=== PATIENT | male | born 1965 | race Caucasian/White ===

== ENCOUNTER 2024-05-21 15:31 | Inpatient (IN) | payer OTHER, SELFPAY ==
[2024-05-21] VITALS (22 sets, daily range): BP systolic 122–164; BP diastolic 77–100; PULSE 80–85; BMI 31.5
--- NOTE | 2024-05-21 08:39 | ED.GENMED ---
History of Present Illness
General
Chief Complaint: Weakness
Source: patient
Exam Limitations: none
Time Seen by Provider: 05/21/24 08:18
Nursing documentation reviewed up to this point in time: agreed with
History of Present Illness
History of Present Illness:
58-year-old male with past medical history melanoma treatment at [facility]. He claims that he had an infusion 1 month ago on April 17 and end up having a reaction and potentially Guillain-Finley�. Has continued right-sided facial droop
and some generalized weakness. His weakness has worsened over the past few days denies specific chest pain. He has felt some constipation and bloating but no sharp abdominal pain no chest pain no specific shortness of breath. No fevers.
Past History
Past History
ED Past Medical History: None
ED Past Surgical History: None
Social History
Tobacco: Non-smoker
Alcohol: None
Review of Systems
Review of Systems
Allergies reviewed?: Yes
All Other Systems: ROS reviewed and negative except as documented in HPI and ROS
Phy Exam
Physical Exam
Physical Exam:
GENERAL: Alert , in no apparent distress
EYE: pupils equal and reactive
NECK: Supple, no significant adenopathy.
ENT: o/p clr, mmm.
CARDIAC: Regular rate and rhythm .
LUNGS: Clear breath sounds bilaterally, no acute respiratory distress, no wheezes/rales/rhonchi
ABDOMEN: Soft, without focal tenderness, no r/g, no cvat
NEUROLOGICAL: Alert and oriented, right-sided facial droop otherwise no cranial nerve findings. 5 out of 5 upper and lower extremity strength normal sensation when palpating bilaterally. Normal finger-nose and sffs-[id number].
SKIN: Warm and dry, skin intact.
MUSCULOSKELETAL: No edema, well perfused.
PSYCH: Normal and appropriate interaction.
Course
Orders/Labs/Results
Orders:
Orders
05/21/24 08:31
Electrocardiogram (*1) Stat
Reason for Study: Abdominal Pain
Cardiac Monitoring- Treatment ONCE
EKG- Treatment ONCE
05/21/24 08:38
Complete Blood Count/With Diff Urgent
Comprehensive Metabolic Panel Urgent
Erythrocyte Sed Rate Urgent
Comment: ADD ON
Ferritin Urgent
Folate Urgent
Comment: ADD ON
TSH Reflex To Free T4 Urgent
Vitamin B12 Urgent
Comment: ADD ON
05/21/24 11:25
Urinalysis Reflex To Culture Urgent
Date Specimen was Collected: 05/21/24
Time Specimen was Collected: 11:16
Urine Microscopic Reflex Cult Urgent
05/21/24 11:44
EMG [Electromyography] Routine
Reason for Exam: GBS or MG after Pembrolizumab
05/21/24 11:45
Add On- LAB Routine
Comments:: Please add to today's labs or draw as routine
Tests Added?: TSH reflex, Ferritin, Folate, Vit. B12, ESR
Obtain Records As Directed
Dates of Information to be Released: all in past 3 months
Type of Information Requested: Entire Record
Obtain Records from: [facility]
05/21/24 11:46
Orthostatic Vital Signs As Directed
Orthostatic VS Frequency: BID
Comment: lying flat x 3 mins then check, seated 3 minutes check, stand 3 mins check
05/21/24 11:47
Speech Therapy Eval & Treat Routine
Treatment: Aphasia
05/21/24 12:15
NEUROLOGY CONSULT Urgent
Consulting Provider: Masood Ricardo
Was physician already notified: Yes
Abnormal Lab Results
05/21/24 05/21/24
08:38 11:25
RBC 4.42 L 10^6/uL
(4.70-6.10)
Hct 38.7 L %
(39.0-52.0)
MCH 32.1 H pg
(27.0-31.0)
Plt Count 105 L 10^3/uL
(130-400)
MPV 10.6 H fL
(7.4-10.4)
Absolute Lymphs (auto) 0.8 L 10^3/uL
(1.2-3.4)
Immature Gran % 0.7 H %
(0-0.5)
Lymphocytes % 14.1 L %
(20.5-51.1)
Monocytes % 10.2 H %
(1.7-9.3)
Sodium 134 L mmol/L
(135-145)
Potassium 3.2 L mmol/L
(3.5-5.1)
Chloride 93 L mmol/L
(98-107)
Carbon Dioxide 31 H mmol/L
(22-30)
Glucose 156 H mg/dl
(70-99)
ALT 76 H U/L
(0-50)
Urine Bilirubin 1+ A
(Negative)
Leukocyte Esterase Rfl Trace A
(Negative)
05/21/24 08:38
05/21/24 08:38
Vital Signs
Initial and Last Documented VS:
Initial Vital Signs
Temp Pulse Resp BP Pulse Ox
98.9 F 91 16 127/82 98
05/21/24 08:09 05/21/24 08:09 05/21/24 08:09 05/21/24 08:09 05/21/24 08:09
Last Documented Vital Signs
Temp Pulse Resp BP Pulse Ox
98.9 F 82 11 122/80 94
05/21/24 08:09 05/21/24 12:15 05/21/24 12:02 05/21/24 12:02 05/21/24 12:15
MDM/Problems Addressed
MDM/Problems Addressed:
58-year-old male presenting to the emergency department today with concerns of generalized weakness fatigue worsening over the past few days. Has had some degree of weakness and fatigue over the past month or so after getting a chemoinfusion and
reversal of the infusion shortly thereafter due to an autoimmune reaction resulting Guillain-Finley� syndrome. Case was discussed with patient's physician at [facility] who confirmed the story. Was previously on high-dose steroids.
Here workup without specific findings on labs of the slightly low potassium level. Case discussed with neurology who saw the patient had some concern for potential myasthenia gravis. Plan to admit for further testing and assessment of this.
*Critical Care Note
Total Time (30-74mins, 75-104mins- exclusive of procedures): Not Applicable
ED Attending Note
-
Portions of this chart may have been created with voice recognition software.� Occasional wrong word or��sound alike� substitutions may have occurred due to the inherent limitations of voice recognition software.
Discharge Plan
Departure
Patient Disposition: Admit
Date of Disposition: 05/21/24
Time of Disposition: 13:55
Admit to: Med/Surg
Admit to doctor: Avelino
Presentation/result/management discussed w/ accepting MD/DO: Hospitalist
Patient with high blood pressure during this ER visit?: No
Condition: Good
Covid-19: Not Applicable
Discharge Problem:
Generalized weakness
Prescriptions:
No Action
amlodipine [Norvasc] 5 mg Tablet
5 mg PO DAILY
pantoprazole [Protonix] 40 mg Tablet,Delayed Release (Dr/Ec)
40 mg PO DAILY
metoprolol succinate [Toprol XL] 25 mg Tablet Extended Release 24 Hr
25 mg PO DAILY
acetaminophen [Tylenol] 325 mg Tablet
650 mg PO BIDPRN PRN (Reason: mild pain)
Ex-Lax (sennosides) 15 mg Tablet,Chewable
15 mg PO DAILYPRN PRN (Reason: constipation)
Thera Tablet
1 tab PO DAILY
GenTeal Tears Mild 0.1-0.3 % Drops
1 drp RIGHT EYE BIDPRN PRN (Reason: dryness)
Referrals:
Karina Landry DO [Family Provider] -
Interventions
Interventions:
*Risk Screen - Suicide Last Done: 05/21/24 08:42
*General Assessment Last Done: 05/21/24 08:42
*Neglect/Abuse Screening Last Done: 05/21/24 08:42
ED- Fall Risk Assessment Last Done: 05/21/24 08:42
*ED COVID-19 Vaccine History Last Done: 05/21/24 08:42
ED- Cardiac Assessment Last Done: 05/21/24 08:42
ED- Neurological Assessment Last Done: 05/21/24 08:42
ED- Pulmonary Assessment Last Done: 05/21/24 08:42
Discharge Date and Time
Print Language: PAKISTANI
[2024-05-21 09:10] LABS: % Basophils 0.4 % (0-2); % Immature Granulocytes 0.7 % (0-0.5); % Lymphocytes 14.1 % (20.5-51.1); % Monocytes 10.2 % (1.7-9.3); % Neutrophils 72.6 % (42.2-75.2); Absolute Eosinophils 0.1 10^3/uL (0-0.7); Absolute Lymphocytes 0.8 10^3/uL (1.2-3.4); Absolute Monocytes 0.6 10^3/uL (0.1-0.6); Absolute Neutrophils 3.9 10^3/uL (1.4-6.5); Hematocrit 38.7 % (39.0-52.0); Hemoglobin 14.2 g/dL (13.0-18.0); Mean Corp Hgb Conc. 36.7 g/dL (33.0-37.0); Mean Corpuscular Hgb 32.1 pg (27.0-31.0); Mean Corpuscular Volume 87.6 fL (80.0-94.0); Mean Platelet Volume 10.6 fL (7.4-10.4); Nucleated Red Blood Cells % 0 % (-); Platelet Count 105 10^3/uL (130-400); Red Blood Cell Count 4.42 10^6/uL (4.70-6.10); Red Cell Dist. Width 12.3 % (11.5-14.5); White Blood Cell Count 5.4 10^3/uL (4.8-10.8)
[2024-05-21 09:12] LABS: ALT (SGPT) 76 U/L (0-50); AST (SGOT) 59 U/L (17-59); Albumin 3.8 g/dl (3.5-5.0); Alkaline Phosphatase 72 U/L (38-126); Blood Urea Nitrogen 17 mg/dl (9-20); Calcium 9.8 mg/dl (8.4-10.2); Carbon Dioxide 31 mmol/L (22-30); Chloride 93 mmol/L (98-107); Glucose 156 mg/dl (70-99); Potassium 3.2 mmol/L (3.5-5.1); Sodium 134 mmol/L (135-145); Total Protein 6.8 g/dl (6.3-8.2); eGFR > 60.00
[2024-05-21 09:37] LABS: TSH Reflex To Free T4 4.08 uIU/ml (0.47-4.68)
--- NOTE | 2024-05-21 11:05 | CON.NEURO ---
Neuro Assessment/Plan
Assessment
IMPRESSIONS
Abrupt change in bilateral lower and bilateral upper extremities with difficulty with swallowing and by examination eyelid weakness. The patient does not have any sensory loss subjectively. He does have sensory loss however distally. It is
possible that the patient's current symptomatology is secondary to exposure than repeated exposure to pembrolizumab. The current symptomatology however matches myasthenia gravis better than GBS. Both neurological disorders can be induced by
pembrolizumab.
Plan
RECOMMENDATIONS:
Check EMG
Start immunoglobulin 0.4 g/per kilogram/per day for 5 days
Will not at this time restart high-dose steroids until information regarding possible GBS is present as this therapy is not assistive in treatment. Likely that this medication was provided originally due to presumed allergic reaction to the
exposure with pembrolizumab
Speech therapy evaluation, consideration for swallowing study repeat after suggestion of recently having undergone same
Most likely will require additional evaluations including physical therapy and Occupational Therapy
Will send acetylcholine receptor antibodies
Attempt to obtain records from [facility]
Watch for alcohol withdrawal
Will continue to follow patient.
Consultation
Order
Date of Consultation: 05/21/24
Requesting Provider: Emergency department provider
Reason for Consult: Guillain-Finley� syndrome
Subjective/Objective
Subjective Data
Date of Service: May 21, 2024
Right-Handed
In January 2024, the patient was diagnosed with melanoma of chest at [facility]. The patient then received an initial infusion of Pembrolizumab from which he developed a rash, with steroids started.
Received second dose of Pembrolizumab 04/17/2024 with reaction of right-sided facial and generalized weakness. The patient then was hospitalized at [facility] receiving IV steroids and underwent MRI of brain without abnormality and LP without
abnormality. Diagnosis of Guillain-Finley� syndrome was provided to the patient and he was maintained on steroids by mouth until 8 days ago.
The patient presented to this hospital's emergency department with difficulty with walking, eating (dysphagia), constipation, sleeping worsening 4 days ago. No focal weakness. No falling. No known modifying factors. The patient did contact [facility] and was reassured that weakness could persist. The patient did not have prior symptoms before January 2024.
Objective Data
Vital Signs
Temp Pulse Resp BP Pulse Ox
37.2 C 79 22 146/82 96
05/21/24 08:09 05/21/24 10:15 05/21/24 10:15 05/21/24 09:00 05/21/24 08:20
Lab Results
05/21/24 08:38
05/21/24 08:38
Sodium 134 mmol/L (135-145) L 05/21/24 08:38
Potassium 3.2 mmol/L (3.5-5.1) L 05/21/24 08:38
BUN 17 mg/dl (9-20) 05/21/24 08:38
Glucose 156 mg/dl (70-99) H 05/21/24 08:38
Calcium 9.8 mg/dl (8.4-10.2) 05/21/24 08:38
Patient Allergies
No Known Allergies Allergy (Verified 05/21/24 08:16)
Review of Systems
-
History Source: Patient
All other systems: Reviewed and negative
EENT: Swallowing Difficulty
Respiratory: Cough; Negative Trouble Breathing
Cardiac: Negative Chest Pain
Abdomen/GI: Constipated and Pain; Negative Incontinence of Stool
Genitourinary: Negative Incontinence
Musculoskeletal: Back Pain (started 4 days ago); Negative Neck Pain
Neuro: Dizzy (started 4 days ago); Negative Headache
Physical Exam
-
General: No Apparent Distress and Appears Stated Age
Eyes: OU Absent Papilledema, Round OU, [place] Conjunctivae and No Ptosis
HEENT: Anicteric and Moist Mucous Membranes
Neck: Full Range of Motion
Respiratory: No Dyspnea
Cardiac: No JVD
GI: Non-distended
Skin: Unremarkable
Extremities: No Clubbing, No Cyanosis and No Edema
Psych: Intact Judgement/Insight
Extended Neurological Exam
Mood & Affect: Mood Unremarkable and Affect Unremarkable
Attention Span & Concentration: Awake, Alert, Interactive and No Difficulty with 2 Step Request
Memory: Unremarkable
Tremor: Hand Tremor Absent and Head Tremor Absent
Involuntary Movement: None
Speech: Quality Unremarkable and Quantity Unremarkable
Cranial Nerve II: Left Eye: Pupillary Reactivity Unremarkable, Pupillary Size Unremarkable and Visual Rodriguez Intact
Cranial Nerve II: Right Eye: Pupillary Reactivity Unremarkable, Pupillary Size Unremarkable and Visual Rodriguez Intact
Cranial Nerves III, IV, : Extraocular Movement: Extraocular Movement Full in all Directions
Cranial Nerve V: Facial Sensation: Facial Sensation Unremarkable to Cold
Cranial Nerve VII: Facial Symmetry: Normal Facial Symmetry and Reduced (Eyelid opening resistance bilaterally)
Cranial Nerve VIII: Hearing: Unremarkable Hearing to Normal Conversational Volume
Cranial Nerves IX, X: Palate Movement: Palate Elevation Symmetric
Cranial Nerve XI: Shoulder Shrug: Unremarkable
Cranial Nerve XII: Tongue Protusion: Midline
Muscle Strength, Overall: Reduced (Approximately right lower extremity 4+ out of 5, left lower extremity proximally 5- out of 5; distal lower extremity strength full; right upper extremity proximal strength 4+ out of 5, left upper extremity
proximally 5- out of 5), Otherwise Intact (Neck flexors and neck extensors) and Other (Bilateral hand strength 5- out of 5)
Muscle Bulk & Tone: Bulk Unremarkable and Tone Unremarkable
Pronator Drift: No Drift in Upper Extremities
Deep Tendon Reflexes: Absent Throughout
Cold Sensation: Unremarkable
Vibration Sensation: Unremarkable
Touch Sensation: Unremarkable
Coordination: [id number] Testing Unremarkable
Babinski Sign: Absent Bilaterally
Gait & Station: Romberg Test Negative
Data Reviewed
-
Labs: Ordered and Report Reviewed
Reviewed with: Physician, Patient and Family
Old Records: Summarized
Medications
-
Home Medications
�Medication �Instructions �Recorded
acetaminophen 325 mg tablet 650 mg PO BIDPRN PRN mild pain 05/21/24
(Tylenol)
amlodipine 5 mg tablet (Norvasc) 5 mg PO DAILY 05/21/24
dextran 70-hypromellose 0.1 %-0.3 1 drp RIGHT EYE BIDPRN PRN dryness 05/21/24
% eye drops (GenTeal Tears Mild)
metoprolol succinate 25 mg 25 mg PO DAILY 05/21/24
tablet,extended release 24 hr
(Toprol XL)
pantoprazole 40 mg tablet,delayed 40 mg PO DAILY 05/21/24
release (Protonix)
sennosides 15 mg chewable tablet 15 mg PO DAILYPRN PRN constipation 05/21/24
(Ex-Lax (sennosides))
therapeutic multivitamin 1 tab PO DAILY 05/21/24
Past History
Past History
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
ED Past Surgical History: Orthopedic (right knee 2019) and Other (MOHS surgery, herniorrhaphy in age 18's)
Social History
Tobacco: Non-smoker
Alcohol: Daily (2x/day)
Drug: None
Personal:
Living: with family
Employment: Employed
Family History
Family History: Other (Reviewed and noncontributory)
[2024-05-21 12:12] LABS: Urine Albumin Trace (Neg - Trace); Urine Bilirubin 1+ (Negative); Urine Character Clear (Clear); Urine Color Yellow; Urine Glucose Negative (Negative); Urine Ketone Negative (Negative); Urine Leukocyte Trace (Negative); Urine Nitrite Negative (Negative); Urine Occult Blood Negative (Negative); Urine Urobilinogen 1+ (Neg - 1+)
[2024-05-21 12:58] LABS: Urine Red Blood Cell 0-2 /HPF (0-2)
[2024-05-21 14:08] LABS: Erythrocyte Sed Rate 70 mm/hour (0-20)
--- NOTE | 2024-05-21 14:16 | HPS.HSE ---
Family Physician
-
Family Physician: Karina Landry
Chief Complaint
-
Increased profound weakness along with increased gait abnormality
History of Present Illness
58-year-old male with history of melanoma following at [facility]. He reports receiving 1 infusion of immunotherapy pembrolizumab early in March for developing a rash to his legs and back similar to his psoriasis along with tingling to
hands and feet. He was placed on a short course of steroids. He then was given a second dose of the same immunotherapy on April 17, 2024 and having a reaction with right sided facial droop, right eyelid droop, slurred speech, perioral tingling,
profound weakness. On April 23 he was taken back to the hospital due to symptoms given IVIG x 5 days 04/23 - 04/28/2024 along with a 16-day course of steroids from 04/28 - 05/14/2024 for concerns of Alicia Finley� reaction. He is reporting continued
right-sided facial droop and some generalized weakness has worsened over the past few days along with some constipation and abdominal bloating. He denies headache, fever, chills, chest pain, palpitations, shortness breath, cough, nausea, vomiting,
diarrhea.
Medical History
Past Medical History
Past Medical History: Reports Other
Additional Past Medical History:
Melanoma being treated at [facility] did receive first dose immunotherapy early March followed by rash to legs and back with tingling to hands and feet
2nd dose immunotherapy pembrolizumab April 17, 2023 resulting in right facial droop, slurred speech, profound weakness, gait imbalance
With post reaction thought to be Alicia Finley� versus possible myasthenia gravis
HTN�benign
Past Surgical History: Reports Other
Additional Past Surgical History:
Hernia repair
Social History
Tobacco: Non-smoker
Alcohol: Occasional
Drug: None
Personal:
Living: With Family ()
Family History
Family History: Other (Mother lung cancer was a smoker, father age 77 pancreatic cancer, 1 sister age 59 kidney failure, 2 sisters 1 history of CVA 3 brothers living 1 history of CVA)
Allergies / Home Medications
Allergies reflects when Allergies were last updated in [facility].
Home Medications with original date entered in [facility]
Allergy/Medication List:
Allergies
Allergy/AdvReac Type Severity Reaction Status Date / Time
No Known Allergies Allergy Verified 05/21/24 08:16
Home Medications
acetaminophen 325 mg tablet (Tylenol) 650 mg PO BIDPRN PRN mild pain 05/21/24
amlodipine 5 mg tablet (Norvasc) 5 mg PO DAILY 05/21/24
dextran 70-hypromellose 0.1 %-0.3 % eye drops (GenTeal Tears Mild) 1 drp RIGHT EYE BIDPRN PRN dryness 05/21/24
metoprolol succinate 25 mg tablet,extended release 24 hr (Toprol XL) 25 mg PO DAILY 05/21/24
pantoprazole 40 mg tablet,delayed release (Protonix) 40 mg PO DAILY 05/21/24
sennosides 15 mg chewable tablet (Ex-Lax (sennosides)) 15 mg PO DAILYPRN PRN constipation 05/21/24
therapeutic multivitamin 1 tab PO DAILY 05/21/24
Review of Systems
-
History Source: Patient and Family ( at bedside)
A 12 point ROS was completed and negative except as noted: Yes
Constitutional: Reports Fatigue (Generalized)
EENT: Reports Other (Chronic right upper lid ptosis, chronic slight slurred speech); Denies Sore Throat or Mouth Swelling
Respiratory: Denies Cough or Trouble Breathing
Cardiac: Denies Chest Pain, Diaphoresis, Palpitations or Syncope
Abdomen/GI: Denies Abdominal Pain, Nausea, Vomiting or Diarrhea
: Denies Dysuria, Frequency, Flank Pain, Incontinence, Difficulty Voiding or Urgency
Musculoskeletal: Reports Other (Generalized weakness arms, legs); Denies Joint Pain, Muscle Pain or Muscle Stiffness
Skin: Reports Rash (Psoriatic rash bilateral anterior lower shins); Denies Itching
Neurological: Reports Dizzy (With standing), Weakness (Generalized) and Numbness (Reported chronic tingling to perioral area, fingertips and feet post immunotherapy); Denies Headache
Endocrine: Reports No Symptoms
Hematologic/Lymphatic: Reports No Symptoms
Psych: Reports Calm
Physical Exam
Vital Signs
Vital Signs
Temp Pulse Resp BP Pulse Ox
98.9 F 82 11 122/80 94
05/21/24 08:09 05/21/24 12:15 05/21/24 12:02 05/21/24 12:02 05/21/24 12:15
Physical Exam
General: Comfortable and Conversant; No Pain, Fever or Chills
HEENT: NormoCephalic, Anicteric, PERRLA, [place] Conjunctivae and Other (Chronic right upper lid ptosis, chronic slight slurred speech able to swallow own secretions able to swallow water at bedside without difficulty)
Respiratory: Clear; No Wheezes, Rales or Rhonchi
Cardiac: S1/S2 and Regular Rhythm; No Murmur, Rub, Gallop or Peripheral Edema
Breast: Deferred by me
GI: Soft, Non Tender, Non Distended, Normal Bowel Sounds and No Hepatosplenomegaly
Rectal: Deferred by Provider
Genito-urinary: Deferred by me
Musculoskeletal: No Clubbing, No Cyanosis and No Edema
Skin: Warm, Dry and Rash (Psoriatic rash bilateral anterior lower shins)
Neuro: AO x 3, No Sensory Deficits, Slurred Speech (Slight chronic since immunotherapy infusion) and Other (Chronic right upper lid ptosis, upper arm lower leg weakness 3 out of 5)
Psych: Calm
Laboratory Results
-
05/21/24 08:38
05/21/24 08:38
Laboratory Results
Total Bilirubin 1.0 mg/dl (0.2-1.3) 05/21/24 08:38
AST 59 U/L (17-59) 05/21/24 08:38
ALT 76 U/L (0-50) H 05/21/24 08:38
Alkaline Phosphatase 72 U/L (38-126) 05/21/24 08:38
Impression/Plan
-
Impression/plan:
Admit to telemetry
#Right-sided facial droop with generalized weakness post immunotherapy thought to be Tony Finley� but concerning for Secondary #Myasthenia Gravis for Hx of melanoma
given IVIG x 5 days 04/23 - 04/28/2024 along with a 16-day course of steroids from 04/28 - 05/14/2024 with 2-week course of Protonix due to
reaction of facial droop/generalized weakness/speech difficulty/gait imbalance.
First infusion of immunotherapy early March 2024 with Pembrolizumab-resulting in rash to legs and back
Second infusion of immunotherapy on April 17, 2024 with Pembrolizumab
ESR elevated 70
-Obtain records from [facility]
-Check acetylcholine receptor antibodies
-IVIG 0.4 g/kg/day x 5 days per neurology
-Consult physiatry Dr. Hipolito Dixon for EMG with Repetitive stimulation study tomorrow 05/22/2024
-Consult neurology
-Speech swallow eval-swallow eval completed at bedside recommended minced and moist with thin liquids and supervision
-Consult PT/OT/case management
#Melanoma hx Dx January 2024 with removal left-sided chest
-Follows at [facility]
Acute hypokalemia
K3.2 will give KCl elixir 40 mEq
Follow BMP at 11 PM
#Thrombocytopenia -unclear
plt 105
#HTN�benign
Continue Norvasc 5 mg daily, Toprol-XL 25 mg daily
#Psoriasis
Current plaques to right lower anterior legs
#Constipation
Continue as needed senna
DVT prophylaxis
Subcu Lovenox
Full code
[2024-05-21 14:32] LABS: Folate 18.2 ng/ml (2.76-20); Vitamin B12 922 pg/ml (239-931)
--- NOTE | 2024-05-21 15:45 | PTOTSP ---
Dysphagia Evaluation
Patient presents with signs concerning for at least moderate oral dysphagia and possible pharyngeal dysphagia. He is at an elevated risk for dysphagia/aspiration given concern for myasthenia gravis. Discontinue oral diet if worsened signs of
dysphagia and/or aspiration noted.
Recommend:
1. IDDSI Level 5 Minced and Moist, IDDSI Level 0 Thin Liquids
2. Medications - as best tolerated
3. Strategies: supervision/assistance, upright to 90 degrees, small sips/bites, slow rate, monitor for fatigue as meal progresses and at end of day, cut straw in 1/2 as needed to assist with ability to drink through utensil, remain upright for 30
minutes after PO intake as a reflux precaution
4. Oral care 3x daily
5. Dysphagia therapy at the acute care level. Will f/u to determine if/when video swallow study warranted.
--- NOTE | 2024-05-21 16:12 | CM ---
CM met with pt and spouse in ED
They reside in a 1st floor apartment with 1 small threshold step
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
He is on medical leave
Plans to borrow a WW and shower chair on dc
No hx with VN/SNF
No insecurities
PCP- Karina Landry
Rx- [facility] [id number]
Pt notes weakness and difficulty with ambulation
Will likely benefit from PT/OT orders once medically appropriate
CM will follow for dc planning
Discharge Disposition- home, follow for needs
[2024-05-21] MEDS: KCL ELIXIR 40 MEQ PO (16:30)
[2024-05-21] MEDS: GAMMAGARD 50 IV (17:45)
[2024-05-21] MEDS: LOVENOX 40 MG SC (17:49)
[2024-05-21] MEDS: GAMMAGARD 200 IV (18:34)
--- NOTE | 2024-05-21 20:09 | W.PN.UPDATE ---
Update Note
Progress Note Update
This note serves as an addendum to the H&P by JULISA Valdez, on May 21, 2024.
History of Presenting Illness
58-year-old male with past medical [facility]. He reports receiving 1 infusion of immunotherapy pembrolizumab early in March 2024 for developing a rash to his legs and back similar to his psoriasis along
with tingling to hands and feet. He was placed on a short course of steroids. He then was given a second dose of the same immunotherapy on April 17, 2024 and then had a reaction with right sided facial droop, right eyelid droop, slurred speech,
perioral tingling and profound weakness. On April 23, 2024, patient was taken back to the hospital due to symptoms and given IVIG x 5 days 04/23 - 04/28/2024 along with a 16-day course of steroids from 04/28 - 05/14/2024 for concerns of Alicia Finley�
reaction. He is reporting continued right-sided facial droop and some generalized weakness has worsened over the past few days along with some constipation and abdominal bloating. He reports that his neurological symptoms improved following his
last hospitalization, but did not completely go away, and now is getting worse again.
Physical Exam
General: Not in acute distress
HEENT: Normocephalic
Respiratory: CTAB
Cardiac: S1/S2 and Regular Rhythm
GI: Soft, Non Tender, Non Distended, Normal Bowel Sounds
Musculoskeletal: No Cyanosis and No Edema
Skin: Warm, Dry and Rash (Psoriatic rash bilateral anterior lower shins)
Neuro: AO x 3. Sensation Grossly Intact bilaterally., PERRL. EOMI. Weakness of facial muscles bilaterally and weakness with eyelid resistance. RLE and RUE Strength 4/5; LLE and LUE 5/5
Psych: Calm
Assessment/Plan
#Right-sided facial droop with generalized weakness post immunotherapy thought to be Tony Finley� but concerning for Secondary #Myasthenia Gravis for Hx of melanoma
given IVIG x 5 days 04/23 - 04/28/2024 along with a 16-day course of steroids from 04/28 - 05/14/2024 with 2-week course of Protonix due to
reaction of facial droop/generalized weakness/speech difficulty/gait imbalance.
First infusion of immunotherapy early March 2024 with Pembrolizumab-resulting in rash to legs and back
Second infusion of immunotherapy on April 17, 2024 with Pembrolizumab
-ESR elevated 70
-[facility]
-Check acetylcholine receptor antibodies
-Picture looks more like MG rather than GBS
-No high-dose steroids at this time as per neurology
-IVIG 0.4 g/kg/day x 5 days per neurology
-Consult physiatry Dr. Hipolito Dixon for EMG with Repetitive stimulation study tomorrow 05/22/2024
-Consult neurology, appreciate eval and recommendations
-Speech swallow eval-swallow eval completed at bedside recommended minced and moist with thin liquids and supervision
-Consult PT/OT/case management
#Melanoma hx Dx January 2024 with removal left-sided chest
-[facility]
Acute hypokalemia
K3.2 will give KCl elixir 40 mEq
Follow BMP at 11 PM
#Thrombocytopenia -unclear
plt 105
#HTN�benign
Continue Norvasc 5 mg daily, Toprol-XL 25 mg daily
#Psoriasis
Current plaques to right lower anterior legs
#Constipation
Continue as needed senna
DVT prophylaxis
Subcu Lovenox
Full code
[2024-05-22] VITALS (15 sets, daily range): BP systolic 139–163; BP diastolic 74–94; PULSE 2–101; O2SAT 96; BMI 31.4
[2024-05-22 00:13] LABS: Blood Urea Nitrogen 15 mg/dl (9-20); Calcium 9.3 mg/dl (8.4-10.2); Carbon Dioxide 28 mmol/L (22-30); Chloride 93 mmol/L (98-107); Estimated Creatinine Clearance > 125 ml/min; Glucose 118 mg/dl (70-99); Potassium 3.6 mmol/L (3.5-5.1); Sodium 130 mmol/L (135-145); eGFR > 60.00
[2024-05-22 07:35] LABS: % Basophils 0.3 % (0-2); % Eosinophils 3.4 % (0-6); % Immature Granulocytes 0.8 % (0-0.5); % Lymphocytes 21.3 % (20.5-51.1); % Monocytes 12.9 % (1.7-9.3); % Neutrophils 61.3 % (42.2-75.2); Absolute Eosinophils 0.1 10^3/uL (0-0.7); Absolute Lymphocytes 0.8 10^3/uL (1.2-3.4); Absolute Monocytes 0.5 10^3/uL (0.1-0.6); Absolute Neutrophils 2.2 10^3/uL (1.4-6.5); Hematocrit 36.9 % (39.0-52.0); Hemoglobin 13.7 g/dL (13.0-18.0); Mean Corp Hgb Conc. 37.1 g/dL (33.0-37.0); Mean Corpuscular Hgb 32.3 pg (27.0-31.0); Nucleated Red Blood Cells % 0 % (-); Platelet Count 101 10^3/uL (130-400); Red Blood Cell Count 4.24 10^6/uL (4.70-6.10); Red Cell Dist. Width 12.2 % (11.5-14.5); White Blood Cell Count 3.6 10^3/uL (4.8-10.8)
[2024-05-22] MEDS: NORVASC 5 MG PO (07:36)
[2024-05-22] MEDS: THERAGRAN 1 TABLET PO (07:36)
[2024-05-22] MEDS: TOPROL XL 25 MG PO (07:36)
[2024-05-22 08:47] LABS: ALT (SGPT) 75 U/L (0-50); AST (SGOT) 53 U/L (17-59); Albumin 3.8 g/dl (3.5-5.0); Alkaline Phosphatase 78 U/L (38-126); Blood Urea Nitrogen 13 mg/dl (9-20); Calcium 9.2 mg/dl (8.4-10.2); Carbon Dioxide 28 mmol/L (22-30); Chloride 93 mmol/L (98-107); Estimated Creatinine Clearance > 125 ml/min; Glucose 110 mg/dl (70-99); Potassium 3.6 mmol/L (3.5-5.1); Sodium 132 mmol/L (135-145); Total Bilirubin 1.2 mg/dl (0.2-1.3); Total Protein 7.4 g/dl (6.3-8.2); eGFR > 60.00
--- NOTE | 2024-05-22 11:25 | CM ---
Chart reviewed and patient would benefit from PT/OT evaluation to assist with discharge planning.
Plan; Await PT/OT evaluations.
--- NOTE | 2024-05-22 11:40 | W.PN.HOSP.TC ---
Today's Communication/Plan
-
Continue IVIG
Appreciate neurology
Assessment / Plan
Assessment / Plan
Physical Exam
General: Not in acute distress
HEENT: Normocephalic
Respiratory: CTAB
Cardiac: S1/S2 and Regular Rhythm
GI: Soft, Non Tender, Non Distended, Normal Bowel Sounds
Musculoskeletal: No Cyanosis and No Edema
Skin: Warm, Dry and Rash (Psoriatic rash bilateral anterior lower shins)
Neuro: AO x 3. Sensation Grossly Intact bilaterally. PERRL. EOMI. Weakness of facial muscles bilaterally and weakness with eyelid resistance. RLE and RUE Strength 4/5; LLE and LUE 5/5
Psych: Calm
Assessment/Plan
58-year-old male with past medical history of melanoma following at [facility]. He reported receiving 1 infusion of immunotherapy pembrolizumab early in March 2024 for developing a rash to his legs and back similar to his psoriasis
along with tingling to hands and feet. He was placed on a short course of steroids. He then was given a second dose of the same immunotherapy on April 17, 2024 and then had a reaction with right sided facial droop, right eyelid droop, slurred
speech, perioral tingling and profound weakness. On April 23, 2024, patient was taken back to the hospital due to symptoms and given IVIG x 5 days 04/23 - 04/28/2024 along with a 16-day course of steroids from 04/28 - 05/14/2024 for concerns of Alicia
Finely� reaction. He reported continued right-sided facial droop and some generalized weakness has worsened over the few days prior to presentation, along with some constipation and abdominal bloating. He reports that his neurological symptoms
improved following his last hospitalization, but did not completely go away, and now is getting worse again.
#Right-sided facial droop with generalized weakness post immunotherapy thought to be Edmunds Finley� but concerning for Secondary #Myasthenia Gravis for Hx of melanoma
given IVIG x 5 days 04/23 - 04/28/2024 along with a 16-day course of steroids from 04/28 - 05/14/2024 with 2-week course of Protonix due to
reaction of facial droop/generalized weakness/speech difficulty/gait imbalance.
First infusion of immunotherapy early March 2024 with Pembrolizumab-resulting in rash to legs and back
Second infusion of immunotherapy on April 17, 2024 with Pembrolizumab
-ESR elevated 70
-Attempt to obtain records from [facility]
-Check acetylcholine receptor antibodies
-Picture looks more like MG rather than GBS
-No high-dose steroids at this time as per neurology
-IVIG 0.4 g/kg/day x 5 days per neurology
-Consult physiatry Dr. Hipolito Dixon for EMG with Repetitive stimulation study tomorrow 05/22/2024
-Consult neurology, appreciate eval and recommendations
-Speech swallow eval-swallow eval completed at bedside recommended minced and moist with thin liquids and supervision
-Consult PT/OT/case management
#Melanoma hx Dx January 2024 with removal left-sided chest
-Follows at [facility]
Acute hypokalemia - RESOLVED
K3.2 will give KCl elixir 40 mEq
Monitor BMP
#Thrombocytopenia -unclear
plt 105 on admission, stable
#HTN�benign
Continue Norvasc 5 mg daily, Toprol-XL 25 mg daily
#Psoriasis
Current plaques to right lower anterior legs
#Constipation
Continue as needed senna
DVT prophylaxis
Subcu Lovenox
Full code
Anticipated Discharge: > 48 hours
Subjective/Interval History
-
Date of Service: May 22, 2024
Patient was seen and examined. He reported no new symptoms, he did report a relatively weak urinary stream.
Objective Data
-
Labs:
Laboratory Results
05/21/24 05/22/24
23:42 07:12
WBC 3.6 L
Hgb 13.7
Hct 36.9 L
Plt Count 101 L
Sodium 130 L 132 L
Potassium 3.6 3.6
Chloride 93 L 93 L
Carbon Dioxide 28 28
BUN 15 13
Creatinine 0.6 L 0.6 L
Glucose 118 H 110 H
Calcium 9.3 9.2
Total Bilirubin 1.2
AST 53
ALT 75 H
Alkaline Phosphatase 78
Vital Signs:
Vital Signs
Temp Pulse Resp BP Pulse Ox
97.8 F 76 18 148/86 97
05/22/24 11:16 05/22/24 11:16 05/22/24 11:16 05/22/24 11:16 05/22/24 11:16
I&O
05/21/24 05/22/24 05/23/24
06:59 06:59 06:59
Intake Total 970 / 970
Balance 970 / 970
[2024-05-22] MEDS: KCL 40 MEQ PO (12:07)
--- NOTE | 2024-05-22 12:35 | W.PN.NEURO.1 ---
Today's Communication / Plan
-
emg/ncs with rep stim
continue ivig
add on mestinon
achr abs
nif/vc
Neuro Assessment/Plan
Assessment
IMPRESSIONS
Abrupt change in bilateral lower and bilateral upper extremities with difficulty with swallowing and by examination eyelid weakness. The patient does not have any sensory loss subjectively. He does have sensory loss however distally. It is
possible that the patient's current symptomatology is secondary to exposure than repeated exposure to pembrolizumab. The current symptomatology however matches myasthenia gravis better than GBS. Both neurological disorders can be induced by
pembrolizumab.
Plan
RECOMMENDATIONS:
Check EMG with repetitive stimulation
Continue immunoglobulin 0.4 g/per kilogram/per day for 5 days total (today is day #2) and Mestinon
Will not at this time restart high-dose steroids until information regarding possible GBS is present as this therapy is not assistive in treatment. Likely that this medication was provided originally due to presumed allergic reaction to the
exposure with pembrolizumab
Speech therapy evaluation, consideration for swallowing study if this was not done at [facility]
physical therapy and Occupational Therapy
acetylcholine receptor antibodies pending
Attempt to obtain records from [facility]
Watch for alcohol withdrawal
Will continue to follow patient.
Subjective/Objective
Subjective Data
Date of Service: May 22, 2024
Objective Data
Vital Signs
Temp Pulse Resp BP Pulse Ox
97.8 F 76 18 148/86 97
05/22/24 11:16 05/22/24 11:16 05/22/24 11:16 05/22/24 11:16 05/22/24 11:16
Lab Results
05/22/24 07:12
05/22/24 07:12
Sodium 132 mmol/L (135-145) L 05/22/24 07:12
Potassium 3.6 mmol/L (3.5-5.1) 05/22/24 07:12
BUN 13 mg/dl (9-20) 05/22/24 07:12
Glucose 110 mg/dl (70-99) H 05/22/24 07:12
Calcium 9.2 mg/dl (8.4-10.2) 05/22/24 07:12
Vitamin B12 922 pg/ml (239-931) 05/21/24 08:38
Patient Allergies
No Known Allergies Allergy (Verified 05/21/24 08:16)
Physical Exam
-
Mood & Affect: Mood Unremarkable and Affect Unremarkable
Attention Span & Concentration: Awake, Alert, Interactive and No Difficulty with 2 Step Request
Memory: vague
Tremor: Hand Tremor Absent and Head Tremor Absent
Involuntary Movement: None
Speech: Quality Unremarkable and Quantity Unremarkable
Cranial Nerve II: Left Eye: Pupillary Reactivity Unremarkable, Pupillary Size Unremarkable and Visual Rodriguez Intact
Cranial Nerve II: Right Eye: Pupillary Reactivity Unremarkable, Pupillary Size Unremarkable and Visual Rodriguez Intact
Cranial Nerves III, IV, : Extraocular Movement: Extraocular Movement Full in all Directions
Cranial Nerve V: Facial Sensation: Facial Sensation Unremarkable to Cold
Cranial Nerve VII: Facial Symmetry: Normal Facial Symmetry; very mild R ptosis
Cranial Nerve VIII: Hearing: Unremarkable Hearing to Normal Conversational Volume
Cranial Nerves IX, X: Palate Movement: Palate Elevation Symmetric
Cranial Nerve XI: Shoulder Shrug: Unremarkable
Cranial Nerve XII: Tongue Protusion: Midline
Muscle Strength, Overall: Reduced (Approximately right lower extremity 4+ out of 5, left lower extremity proximally 5- out of 5; distal lower extremity strength full; right upper extremity proximal strength 4+ out of 5, left upper extremity
proximally 5- out of 5), Otherwise Intact (Neck flexors and neck extensors)
Muscle Bulk & Tone: Bulk Unremarkable and Tone Unremarkable
Pronator Drift: No Drift in Upper Extremities
Deep Tendon Reflexes: Absent Throughout
Cold Sensation: Unremarkable
Vibration Sensation: Unremarkable
Touch Sensation: Unremarkable
Coordination: [id number] Testing Unremarkable
Babinski Sign: Absent Bilaterally
[2024-05-22] MEDS: MESTINON 30 MG PO ×2 (13:15→16:10)
--- NOTE | 2024-05-22 16:04 | NS.EMG ---
Electromyogram (EMG) Study
EMG/NCS Summary
EMG/nerve conduction study of both lower limbs, the left upper limb, and right facial motor nerve conduction study was completed in the patient's hospital room.
Left ulnar and right facial motor nerve repetitive stimulation technique was completed.
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
Normal left ulnar and right facial nerve repetitive stimulation technique.
Full dictated report and tabular data to follow.
[2024-05-22] MEDS: GAMMAGARD 50 IV (16:52)
[2024-05-22] MEDS: LOVENOX 40 MG SC (17:02)
[2024-05-22] MEDS: GAMMAGARD 200 IV (17:58)
[2024-05-22] MEDS: COZAAR 25 MG PO (18:40)
--- NOTE | 2024-05-22 20:15 | PTCARENOTE ---
When this nurse was performing rounds pt appeared flushed, SOB, and lethargic. Pt receiving IVIG throughout the day. Pt told this nurse 'I do not feel well I cant seem to catch my breath'. BP 156/87, RR 22, HR 75, Temp 97.7, pulse ox 97% on RA.
Blood glucose 127. Mike, Hephziba [employer] notified. Oxygen applied at 4L. Mike. Hephziba at bed side. New orders obtained.
[2024-05-22 20:22] LABS: Glucose - Point of Care 127 mg/dl (70-99)
[2024-05-22 21:35] LABS: COVID-19 Antigen Negative (Negative)
--- NOTE | 2024-05-22 21:52 | W.PN.UPDATE ---
Update Note
Progress Note Update
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 Temp 97.7, 156/87, 75 20, 93% RA BS 127. Patient seen and evaluated. reports feeling shortness of breath, feeling weak, started around evening, Denies any chest pain, Also reports
someone visited him was sick. Respiratory therapist in to do NIF, VC test. Lungs rales noted on Right posterior/lateral chest. Will order Covid, Chest Xray stat. SOB, weakness likely due Guillain [place] syndrome disease process?.
Will transfer patient to IMU per Dr. Singh
--- NOTE | 2024-05-22 22:40 | PTCARENOTE ---
Pt to be transferred to [facility]. Report called to IMU, RN Viri Mondragon. Pt still on 4L. Pt appears lethargic, SOB improved.
--- NOTE | 2024-05-22 22:58 | PTCARENOTE ---
Received patient as an upgrade from [facility] on 4 liters NC. SP02 97 percent. No increased work of breathing/ SOB.
[2024-05-22 23:53] LABS: B.E. 5.5 mmol/L; HCO3 29.9 mmol/L (21-28); O2 Saturation % 98.7 % (94-98); PCO2 42 mmHg (35-48); PO2 92 mmHg (83-108); pH 7.46 (7.35-7.45)
[2024-05-23] VITALS (11 sets, daily range): BP systolic 104–162; BP diastolic 74–87; PULSE 2–79
--- NOTE | 2024-05-23 00:13 | W.PN.UPDATE ---
Update Note
Progress Note Update
05/22/24
2100- Asked by Dr. Singh, neurologist to assist in triaging patient. Reported by respiratory therapist Vital capacity .9L and FEV 1.6. Difficulty obtaining results because patient seemed weaker and short of breath. NIF was not obtained because
patient was unable to make a good seal around the mouth piece. Worsening upper body weakness and worsening respiratory status with shortness of breath, neurologist requested patient to be upgraded to IMU status for continued neurological checks and
closer monitoring clinical concern for worsening Guillain [place] Syndrome. Patient has received IVIG treatments and are ordered. Dr. Alvarez and rajani CRLynn Cuevas and Mike, updated on patients condition and agreed to place orders for transfer.
Patient had increased work of breath, will trial bipap /. Noted weakness head, bilateral shoulders, and bilateral upper arms 4/5 strength. Patient also stated that he feels weak and difficulty with breathing. Able to get good tidal volumes
with bipap. Continue with neurological checks, obtain baseline ABG, daily NIF/VC checks daily/PRN. Low threshold for intubation if respiratory status worsens, reviewed this with patient and agreed verbally to intubation if needed. Updated nurse
of plan of care and alert if any changes in respiratory or neurological status. Continue neuro checks Q4H.
[2024-05-23 03:59] LABS: % Basophils 0.3 % (0-2); % Eosinophils 1.4 % (0-6); % Immature Granulocytes 0.3 % (0-0.5); % Lymphocytes 11.9 % (20.5-51.1); % Monocytes 10.2 % (1.7-9.3); % Neutrophils 75.9 % (42.2-75.2); Absolute Eosinophils 0.1 10^3/uL (0-0.7); Absolute Lymphocytes 0.8 10^3/uL (1.2-3.4); Absolute Monocytes 0.7 10^3/uL (0.1-0.6); Absolute Neutrophils 4.9 10^3/uL (1.4-6.5); Hematocrit 36.8 % (39.0-52.0); Hemoglobin 13.7 g/dL (13.0-18.0); Mean Corp Hgb Conc. 37.2 g/dL (33.0-37.0); Mean Corpuscular Hgb 33.3 pg (27.0-31.0); Mean Corpuscular Volume 89.3 fL (80.0-94.0); Mean Platelet Volume 9.8 fL (7.4-10.4); Nucleated Red Blood Cells % 0 % (-); Platelet Count 101 10^3/uL (130-400); Red Blood Cell Count 4.12 10^6/uL (4.70-6.10); Red Cell Dist. Width 12.1 % (11.5-14.5); White Blood Cell Count 6.5 10^3/uL (4.8-10.8)
[2024-05-23 04:23] LABS: ALT (SGPT) 71 U/L (0-50); AST (SGOT) 50 U/L (17-59); Albumin 3.8 g/dl (3.5-5.0); Alkaline Phosphatase 78 U/L (38-126); Blood Urea Nitrogen 11 mg/dl (9-20); Calcium 9.4 mg/dl (8.4-10.2); Carbon Dioxide 26 mmol/L (22-30); Chloride 93 mmol/L (98-107); Estimated Creatinine Clearance > 125 ml/min; Glucose 115 mg/dl (70-99); Potassium 4.1 mmol/L (3.5-5.1); Sodium 130 mmol/L (135-145); Total Bilirubin 1.1 mg/dl (0.2-1.3); Total Protein 7.7 g/dl (6.3-8.2); eGFR > 60.00
--- NOTE | 2024-05-23 06:15 | PTCARENOTE ---
Patient on the bipap overnight with one hour break. No increased weakness/SOB.
--- NOTE | 2024-05-23 08:06 | CON.PUL ---
Consultation
Consultation Request
Date/Time Consultation Requested: 05/23/24
Date/Time Consultation Performed: 05/23/24
Performing Provider: Tiffanie
Reason for Consultation: Resp Failure/SOB
Medical History
-
History of Present Illness:
Patient is a 58-year-old male with past medical history of melanoma s/p treatment at [facility] in early March (x1 infusion) with reaction of generalized weakness, LE rash and 4-limb parasthesias. Was treated with a course of steroids
and underwent another infusion on 04/17/24 with reported right sided facial droop, right eyelid droop, slurred speech, perioral tingling, profound weakness.
On April 23 he was taken back to OSH due to symptoms given IVIG x 5 days 04/23 - 04/28/2024 along with a 16-day course of steroids from 04/28 - 05/14/2024 for concerns of Alicia Finlye� reaction.
However, since discharge, his weakness has worsened over the past few days and returns to ER.
He is admitted to IMU for concern of respiratory failure, VC 0.9L, NIF could not be obtained. Placed on BIPAP overnight. Initial ABG without ventilatory impairment.
.
Past Medical History
Past Medical History: Other (see list below)
Social History
Tobacco: Non-smoker
Alcohol: None
Drug: None
Family History
Family History: Reviewed & Not Pertinent
Allergies / Home Medications
Allergies
Allergy/AdvReac Type Severity Reaction Status Date / Time
No Known Allergies Allergy Verified 05/21/24 08:16
Home Medications
�Medication �Instructions �Recorded �Confirmed �Last Taken �Type
acetaminophen 325 mg tablet 650 mg PO BIDPRN PRN mild pain 05/21/24 05/21/24 05/18/24 History
(Tylenol)
amlodipine 5 mg tablet (Norvasc) 5 mg PO DAILY Blood Pressure 05/21/24 05/21/24 05/20/24 History
dextran 70-hypromellose 0.1 %-0.3 1 drp RIGHT EYE BIDPRN PRN dryness 05/21/24 05/21/24 Unknown History
% eye drops (GenTeal Tears Mild)
metoprolol succinate 25 mg 25 mg PO DAILY Blood Pressure 05/21/24 05/21/24 05/20/24 History
tablet,extended release 24 hr
(Toprol XL)
pantoprazole 40 mg tablet,delayed 40 mg PO DAILY Gastrointestinal 05/21/24 05/21/24 05/20/24 History
release (Protonix) Issue
sennosides 15 mg chewable tablet 15 mg PO DAILYPRN PRN constipation 05/21/24 05/21/24 05/20/24 History
(Ex-Lax (sennosides))
therapeutic multivitamin 1 tab PO DAILY Supplement 05/21/24 05/21/24 Unknown History
Review of Systems
-
History Source: Patient
All other systems: Negative unless noted
Vitals / Labs / Diagnostic Testing
Vital Signs
Temp Pulse Resp BP Pulse Ox
97.5 F 81 18 148/87 92
05/23/24 07:05 05/23/24 06:00 05/23/24 06:00 05/23/24 06:00 05/23/24 06:00
Lab Data
05/23/24 03:44
05/23/24 03:44
Laboratory Results
05/22/24
23:44
pH 7.46 H
pCO2 42
pO2 92
HCO3 29.9 H
O2 Delivery Level
Diagnostic Testing:
Physical Exam
-
HEENT: Normocephalic, Anicteric and Moist Mucous Membranes
Cardiovascular: S1/S2 and Regular Rhythm
Respiratory: Clear and Non-Labored Respirations
GI: Soft and Non Distended
Neurology: Awake, Alert, Oriented, Tremors and Other (slurred speech, weakness noted)
Skin: Warm and Dry
General: Comfortable and Other (NAD)
Assessment
-
Patient is a 58-year-old male with past medical history of melanoma s/p treatment at [facility] in early March (x1 infusion) with reaction of generalized weakness, LE rash and 4-limb paraesthesias. Was treated with a course of steroids and underwent
another infusion on 04/17/24 with reported right sided facial droop, right eyelid droop, slurred speech, perioral tingling, profound weakness. On April 23 he was taken back to OSH due to symptoms given IVIG x 5 days 04/23 - 04/28/2024 along with a 16-day
course of steroids from 04/28 - 05/14/2024 for concerns of Alicia Finley� reaction. However, since discharge, his weakness has worsened over the past few days and returns to ER. He is admitted to IMU for concern of respiratory failure, VC 0.9L, NIF
could not be obtained. Placed on BIPAP overnight. Initial ABG without ventilatory impairment. We are consulted for eval.
Abrupt change in bilateral lower and bilateral upper extremities suspicious for Acute MG flare vs GBS
Difficulty swallowing/eyelid weakness
LE sensory loss/paraesthesias
Melanoma s/p pembrolizumab x 2
Progressive weakness
SOB, possible respiratory failure due to weakness, on BIPAP
Conditions present CREDIT AND COLLECTION MANAGER
Melanoma
Obesity, BMI 31
LEFTY not on CPAP
Plan
Hypoxemia noted on arrival, O2 lisset 88%, maintained on 4L
Placed on BIPAP overnight with improvement, feels subjectively better with use
Home O2 evaluation eventually
No prior history of lung disease is noted, lifelong nonsmoker
Has a prior history of LEFTY, not on CPAP
CXR/CT obtained indicating NAD
Other imaging reviewed--can repeat testing as needed at this time
s/p infusion with resultant NM complication
Neuro following, possible acute MG vs GBS
Currently contemplating IVIG, has been treated in the past with steroids with improvement
Respiratory involvement noted, with bulbar symptoms/UE involvement, more likely to involve diaphragm
Prior NIF could not be obtained, VC 0.9 L
Repeat this AM: NIF -40 and VC 1.2L (improved), can repeat daily
At this level, ICU admission not necessary, can be carefully monitored in IMU
Baseline AB.46/42/92/29.9
Continue BIPAP nightly and PRN
No prior history of cardiac disease
No ECHO for review
Weight loss measures recommended
Obesity can be contributory to respiratory symptoms
Will need outpatient pulmonary evaluation in our office for PFTs and 6MWT
Reviewed with patient
Risk factors assessed for underlying sleep disordered breathing also noted, recommend outpatient PSG/sleep evaluation
Reviewed this plan with patient and his at bedside
Reviewed via TT with care team
We will follow
Diagnostic Data
Chest X-Ray: 05/22/24- No acute cardiopulmonary abnormality.
CT Scan:
Echo:
PFT's:
Reports and relevant images were personally reviewed.
Total time spent on this consultation __81__ includes review of history, physical exam, medications, laboratory data, personal review of imaging, extensive review of outpatient records, discussion with care team and respiratory therapy.
--- NOTE | 2024-05-23 08:58 | PN.CDI ---
CDI
- -
CDI:
Physician Documentation Request
Admit Date: 05/21/24 15:31
Dear Doctor Cali,
Clinical Indicators:
Patient admitted with concern for Myasthenia Gravis.
05/22 PN, 'Thrombocytopenia'
WBC,RBC, Plt :
05/22/24
07:12
WBC 3.6 L
RBC 4.24 L
Plt Count 101 L
Based on the above, could you clarify in the progress notes, the appropriate diagnosis, if significant, that supports the above abnormalities and additional evaluation, monitoring and/or treatment rendered:
Pancytopenia
Thrombocytopenia only
Other, please specify
Use of terms such as suspected, likely, concern for, or probable (associated with a specific diagnosis that is being evaluated, monitored, or treated as if it exists) are acceptable and can be coded in the inpatient setting, when documented at the
time of discharge.
Thank you,
Mili Griffin RN BSN
CDI Specialist
available via tiger text
Please use your independent medical judgment in providing your response.
--- NOTE | 2024-05-23 09:02 | PN.CDI ---
CDI
- -
CDI:
Physician Documentation Request
Admit Date: 05/21/24 15:31
Dear Doctor Cali,
Clinical Indicators:
Patient admitted with concern for Myasthenia Gravis.
Fluid Restriction 48 oz/day
Sodium levels:
05/21/24 05/22/24
23:42 07:12
Sodium 130 L 132 L
Based on the above, could you clarify in the progress notes, the appropriate diagnosis, if significant, that supports the above abnormalities and additional evaluation, monitoring and/or treatment rendered:
Hyponatremia
Abnormal lab values, clinically insignificant
Other, please specify
Use of terms such as suspected, likely, concern for, or probable (associated with a specific diagnosis that is being evaluated, monitored, or treated as if it exists) are acceptable and can be coded in the inpatient setting, when documented at the
time of discharge.
Thank you,
Mili Griffin RN BSN
CDI Specialist
available via tiger text
Please use your independent medical judgment in providing your response.
[2024-05-23] MEDS: COZAAR 25 MG PO (09:08)
[2024-05-23] MEDS: NORVASC 5 MG PO (09:08)
[2024-05-23] MEDS: TOPROL XL 25 MG PO (09:08)
[2024-05-23] MEDS: THERAGRAN 1 TABLET PO (09:08)
--- NOTE | 2024-05-23 10:39 | PTOTSP ---
Dysphagia Therapy
Patient with signs concerning for worsened dysphagia/possible aspiration (i.e., reporting inability to chew, anterior liquid loss, coughing with thin liquids cup/straw) and recent decline in respiratory status (i.e., required transfer to IMU and
Bi-PAP 05/22; congestion with coughing at rest). Video swallow study recommended to assess oral and pharyngeal stages of swallowing, r/o silent aspiration, and further develop treatment plan. Until video swallow study recommend NPO and medications
in puree. Patient and family in agreement.
Recommend:
1. NPO
2. Medications - in puree
3. Oral care 3x daily
4. Video swallow study
--- NOTE | 2024-05-23 11:22 | W.PN.NEURO.1 ---
Today's Communication / Plan
-
cxr
pulm evaluation
nf/vc
tx to [facility]
Neuro Assessment/Plan
Assessment
IMPRESSIONS
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
receive 5 days of IVIG at that time. Still have not received records. IVIG was given here when initial hx was that he had not clearly received this at [facility]. EMG/NCS with rep stim done yesterday afternoon c/w GBS. Initially there was
concern for possible MG--was given Mestinon which has now been discontinued.
After second dose of IVIG yesterday evening he became more SOB, VC 0.9L, transferred to IMU, on BiPAP overnight.
This AM bulbar symptoms have worsened including facial weakness, dysarthria.
He has been accepted at [facility] for transfer.
Plan
RECOMMENDATIONS:
d/c'd IVIG, Mestinon
Stat CXR
Stat VC/NIF, BiPAP PRN
pulm evaluation
for transfer to [facility] today
Speech therapy evaluation, consideration for swallowing study if this was not done at [facility]
physical therapy and Occupational Therapy
Requested [facility] records
Watch for alcohol withdrawal
neurochecks, ICU level of care
Critical care time 40 mins
Reviewed with overnight ICU team, hospitalist, resp therapist, patient and his
Subjective/Objective
Subjective Data
Date of Service: May 23, 2024
patient became SOB after finishing IVIG #2 last night; VC was 0.9L, transferred to IMU, put on BiPAP
bilateral facial weakness and dysarthria worsening, dysphagia appears worse but patient denies any change
Objective Data
Vital Signs
Temp Pulse Resp BP Pulse Ox
97.5 F 77 27 104/85 96
05/23/24 07:05 05/23/24 10:45 05/23/24 10:45 05/23/24 10:45 05/23/24 10:00
Lab Results
05/23/24 03:44
05/23/24 03:44
Sodium 130 mmol/L (135-145) L 05/23/24 03:44
Potassium 4.1 mmol/L (3.5-5.1) 05/23/24 03:44
BUN 11 mg/dl (9-20) 05/23/24 03:44
Glucose 115 mg/dl (70-99) H 05/23/24 03:44
Calcium 9.4 mg/dl (8.4-10.2) 05/23/24 03:44
Vitamin B12 922 pg/ml (239-931) 05/21/24 08:38
Patient Allergies
No Known Allergies Allergy (Verified 05/21/24 08:16)
Physical Exam
Extended Neurological Exam
Mood & Affect: Mood Unremarkable and Affect Unremarkable
Attention Span & Concentration: Awake, Alert and Interactive
Memory: Unremarkable
Tremor: Hand Tremor Absent and Head Tremor Absent
Speech: Dysarthric
Cranial Nerve II: Left Eye: Visual Rodriguez Grossly Intact
Cranial Nerve II: Right Eye: Visual Rodriguez Grossly Intact
Cranial Nerves III, IV, : Extraocular Movement: Extraocular Movement Full in all Directions
Cranial Nerve V: Facial Sensation: Facial Sensation Unremarkable to Cold
Cranial Nerve VII: Facial Symmetry: Reduced (bilateral facial weakness--worsening)
Cranial Nerve VIII: Hearing: Unremarkable Hearing to Normal Conversational Volume
Muscle Strength, Overall: Other (approximately right lower extremity 4+ out of 5, left lower extremity proximally 5- out of 5; distal lower extremity strength full; right upper extremity proximal strength 4+ out of 5, left upper extremity proximally
5- out of 5, Neck flexors, ext intact)
Deep Tendon Reflexes: Absent Throughout
Babinski Sign: Absent Bilaterally
--- NOTE | 2024-05-23 11:53 | CM ---
Addendum entered by Lindsay Martinez RN 05/23/24 17:31:
decided transport should be air ambulance to [facility] [place] today.
Original Note:
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 O2 4L. BiPAP HS. EMG/NCS today.
Receiving IVIG.
Notified by Dr Leiva of planned transfer to [facility] when bed available. Accepting doctor is Dr. Biju Abdullahi, Nneurologist at [facility]. Patient requires cardiac monitoring during transport.
Met with patient who was sleeping with Sneha present; spoke with at length, who is somewhat distraught re; her 's medical status. She is asking for a winery cellar hand to see them today---> spoke with Chaplain Nida who will have spare fixer
see them first and then winery cellar hand.
aware of plan for transfer to [facility] - Dr Leiva in to meet with them.
Plan transfer to [facility] by ALS ambulance when bed is available.
--- NOTE | 2024-05-23 12:13 | W.PN.HOSP.TC ---
Addendum entered and electronically signed by Leonidas Leiva MD 05/23/24 13:44:
Video Swallow study completed, and per speech, recommendation for puree, mildly thick liquids for now.
Original Note:
Today's Communication/Plan
-
On 05/23/24, I spoke to [facility] transfer center, and spoke with PGY4 neurology fellow Dr. Altamirano, and neurologist Dr. Biju Abdullahi accepted patient for transfer to [facility].
Assessment / Plan
Assessment / Plan
Physical Exam
General: Not in acute distress
HEENT: Normocephalic
Respiratory: CTAB. CURRENTLY ON ROOM AIR SATURATING 95%.
Cardiac: S1/S2 and Regular Rhythm
GI: Soft, Non Tender, Non Distended, Normal Bowel Sounds
Musculoskeletal: No Cyanosis and No Edema
Skin: Warm, Dry and Rash (Psoriatic rash bilateral anterior lower shins)
Neuro: AO x 3. Dysarthria. Visual acuity and visual drake grossly intact. Sensation Grossly Intact bilaterally. PERRL. EOMI. Weakness of facial muscles bilaterally - WORSENED - and weakness with eyelid resistance. B/L UE 4/5 strength. B/L LE 5/5
strength.
Psych: Calm
Assessment/Plan
58-year-old male with past medical history of melanoma following at [facility]. He reported receiving 1 infusion of immunotherapy pembrolizumab early in March 2024 for developing a rash to his legs and back similar to his psoriasis
along with tingling to hands and feet. He was placed on a short course of steroids. He then was given a second dose of the same immunotherapy on April 17, 2024 and then had a reaction with right sided facial droop, right eyelid droop, slurred
speech, perioral tingling and profound weakness. On April 23, 2024, patient was taken back to the hospital due to symptoms and given IVIG x 5 days 04/23 - 04/28/2024 along with a 16-day course of steroids from 04/28 - 05/14/2024 for concerns of Alicia
Finley� reaction. He reported continued right-sided facial droop and some generalized weakness has worsened over the few days prior to presentation, along with some constipation and abdominal bloating. He reports that his neurological symptoms
improved following his last hospitalization, but did not completely go away, and now is getting worse again.
#Bilateral facial droop with generalized weakness post immunotherapy thought to be Stanley Finley� but concerning for secondary #Myasthenia Gravis for Hx of melanoma
given IVIG x 5 days 04/23 - 04/28/2024 along with a 16-day course of steroids from 04/28 - 05/14/2024 with 2-week course of Protonix due to reaction of facial droop/generalized
weakness/speech difficulty/gait imbalance.
First infusion of immunotherapy early March 2024 with Pembrolizumab-resulting in rash to legs and back
Second infusion of immunotherapy on April 17, 2024 with Pembrolizumab
-ESR elevated 70
-Attempt to obtain records from [facility]
-Check acetylcholine receptor antibodies
-Picture looks more like MG rather than GBS
-No high-dose steroids at this time as per neurology
-Patient appeared more SOB and received BiPAP overnight from 05/22/24 to 05/23/24. NIF this morning -40.
-Stop IVIG 0.4 g/kg/day (received 1st dose on 05/21/24 and second dose on 05/22/24) as patient's bulbar symptoms getting worse, appears he may be
aspirating or developing more rhonchi/crackles
-CXR on 05/22/24 with no acute cardiopulmonary abnormality, repeat CXR today pending
-Stat VC/NIF, BiPAP PRN
-Consulted physiatry Dr. 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
-Consult neurology, appreciate eval and recommendations
-Consulted pulmonary given patient's worsened pulmonary status
-Speech swallow eval-NPO except for meds at this time. Video Swallow requested.
-Consult PT/OT/case management
#Melanoma hx Dx January 2024 with removal left-sided chest
-Follows at [facility]
#Acute hypokalemia - RESOLVED
-Continue to monitor BMP
#Thrombocytopenia
#Pancytopenia -- related to pembrolizumab?
plt 105 on admission, stable
#Hyponatremia
-Stable in the low 130s
-IVIG can also contribute to hyponatremia
-Continue PO Fluid Restriction
-If persists, will need urine and serum studies to evaluate etiology
#HTN�benign
Continue Norvasc 5 mg daily, Toprol-XL 25 mg daily
#Psoriasis
Current plaques to right lower anterior legs
#Constipation
Continue as needed senna
DVT prophylaxis
Subcu Lovenox
Full code
On 05/23/24, I spoke to [facility] transfer center, and spoke with PGY4 neurology fellow Dr. Altamirano, and neurologist Dr. Biju Abdullahi accepted patient for transfer to [facility].
Anticipated Discharge: Within 24 hours
Subjective/Interval History
-
Date of Service: May 23, 2024
Patient was seen and examined. He reported feeling about the same. Overnight, per reports, patient appeared flush and had shortness of breath. BiPAP was given and NIF was -40. This morning, patient's facial weakness and dysarthria have worsened.
Objective Data
-
Labs:
Laboratory Results
05/23/24
03:44
WBC 6.5
Hgb 13.7
Hct 36.8 L
Plt Count 101 L
Sodium 130 L
Potassium 4.1
Chloride 93 L
Carbon Dioxide 26
BUN 11
Creatinine 0.6 L
Glucose 115 H
Calcium 9.4
Total Bilirubin 1.1
AST 50
ALT 71 H
Alkaline Phosphatase 78
Vital Signs:
Vital Signs
Temp Pulse Resp BP Pulse Ox
97.8 F 77 27 104/85 96
05/23/24 11:05 05/23/24 10:45 05/23/24 10:45 05/23/24 10:45 05/23/24 10:00
I&O
05/22/24 05/23/24 05/24/24
06:59 06:59 06:59
Intake Total 970 / 970 1310 / 1310
Output Total 400 / 400
Balance 970 / 970 910 / 910
--- NOTE | 2024-05-23 13:14 | CHAP ---
Family Nurse request relayed to Fr. Larry Seymour who is covering today. He anticipates arriving later this afternoon (3 or 4pm)
--- NOTE | 2024-05-23 14:12 | PTCARENOTE ---
Patient back from CXR and video swallow. Patient on modified diet IDSSI 4 with nectar thick liquids and aspiration precautions. Waiting for bed at [facility] for transfer.
--- NOTE | 2024-05-23 15:20 | W.DCSUMMARY ---
Discharge Summary
Discharge Data
Date of Admission: 05/21/24
Date of Discharge: 05/23/24
Total time spent discharging patient (in min): 55
-
Pending Results: Yes
Additional Pending Results:
Acetylcholine Receptor Binding Antibodies
Hospital Course
58 y/o male with past medical history of melanoma with recent Pembrolizumab treatment in March 2024 at [facility] presented with worsening weakness and worsening of his recent neurologic symptoms that started in March 2024 following
Pembrolizumab treatment. Per patient, he developed a rash after the initial Pembrolizumab treatment, and received steroids, and after the second Pembrolizumab treatment he developed new neurologic symptoms of right sided facial droop, right eyelid
droop, slurred speech, perioral tingling and profound weakness. Patient was taken back to the [facility] due to symptoms and given IVIG x 5 days 04/23 - 04/28/2024 along with a 16-day course of steroids from 04/28/2024 - 05/14/2024 (these dates need to be
confirmed) for concerns of Alicia Finley� reaction. He is reported continued right-sided facial droop and some generalized weakness which have worsened over the few days prior to presentation, along with some constipation and abdominal bloating. He
reports that his neurological symptoms improved following his last hospitalization, but did not completely go away, and now are getting worse again. Per neurology, patient underwent MRI of brain without abnormality and LP without abnormality at [facility] in March 2024 to April 2024.
Patient was noted to have bilateral facial muscle weakness along with weakness of his bilateral eyelids. Neurology was consulted and patient was started on immunoglobulin 0.4 g/per kilogram/per day with a plan to continue it for 5 days, but since
patient's neurological symptoms worsened (i.e. dysphagia, worsening dysarthria, and worsening bilateral facial weakness), further IVIG was held. Patient became short of breath after finishing IVIG #2 on May 23, 2024; VC was 0.9L, patient was
transferred to IMU unit next to ICU, and placed on BiPAP, and IVIG was held as above. CXR without any acute abnormalities. Pulmonary was consulted, please see their note from 05/23/24. 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
although initial impression was that Myasthenia Gravis was more likely.
Discharge Plan
-
Patient Disposition: Acute Care Hospital
Discharge Orders:
Discharge Patient (As Directed); Ordered 05/23/24
Ordered By: Leonidas Leiva
Discharge Date and Time
Print Language: SAO TOMEAN
--- NOTE | 2024-05-23 16:14 | PTOTSP ---
Video Swallow Study
Summary: Patient presents with moderate oral and mild pharyngeal dysphagia. There was deep laryngeal penetration of thin liquids via straw before/during the swallow due to decreased posterior oral containment/premature spillage and decreased
laryngeal vestibule closure. A cued cough cough did not clear contrast. Aspiration did not occur but risk is elevated. Please see patient care note for full details of swallowing physiology, penetration, and retention.
Recommend:
1. IDDSI Level 4 Puree, IDDSI Level 2 Mildly Thick Liquids
2. Medications - in puree (crushed if medically cleared)
3. Strategies: upright to 90 degrees, small sips/bites, slow rate, remain upright for at leat 30 minutes after PO intake, discontinue oral intake if worsened dysphagia/aspiration signs
4. Oral care 3x daily
5. Aspiration Risk Hydration Protocol - single sips of water after oral care, without other PO/meds, for comfort pending respiratory status
6. Dysphagia therapy at the acute care level and after D/C.
--- NOTE | 2024-05-23 16:55 | TRANSFER ---
Patient transferred to [facility] via [facility] flight .
== END 2024-05-23 15:58 | disposition short-term general hospital (02) | DRG 56 ==
LOC: IMU 15:31
PROVIDERS: Clinical Nurse Specialist Family Health; Nurse Practitioner Family; Nurse Practitioner Gerontology; Physician Assistant; ADMITTING PHYSICIAN Hospitalist; CONSULT PHYSICIAN Internal Medicine; CONSULT PHYSICIAN Psychiatry & Neurology Neurology; EMERGENCY PHYSICIAN Emergency Medicine; FAMILY PHYSICIAN Family Medicine
PROC: 30233S1 Transfusion of Nonautologous Globulin into Peripheral Vein, Percutaneous Approach (ICD-10-PCS; 2024-05-22)
DX: G70.00 Myasthenia gravis without (acute) exacerbation (principal); D61.811 Other drug-induced pancytopenia; J96.91 Respiratory failure, unspecified with hypoxia; E87.1 Hypo-osmolality and hyponatremia; C43.59 Malignant melanoma of other part of trunk; E87.6 Hypokalemia; L40.9 Psoriasis, unspecified; K59.00 Constipation, unspecified; T50.995A Adverse effect of other drugs, medicaments and biological substances, initial encounter; I10 Essential (primary) hypertension; G47.33 Obstructive sleep apnea (adult) (pediatric); R29.810 Facial weakness; R13.10 Dysphagia, unspecified; R47.1 Dysarthria and anarthria; E66.9 Obesity, unspecified; Z68.31 Body mass index [BMI] 31.0-31.9, adult; Z79.899 Other long term (current) drug therapy; Z11.52 Encounter for screening for COVID-19
CPT/HCPCS: 36600; 71045; 71046; 74230; 80048; 80053; 81003; 81015; 82607; 82728; 82746; 82805; 82962; 84443; 85025; 85652; 86041; 87811; 92526; 92611; 93005; 94660; 95886; 95912; 97163; 97166; 99285; J1569